=== PATIENT | female | born 1975 | race Caucasian/White ===

== ENCOUNTER 2017-10-30 10:44 | Emergency (ER) | payer BC ==
[2017-10-30 10:47] VITALS: BP 134/62; PULSE 80; RESP 16; TEMP 97.8; O2SAT 100
[2017-10-30] MEDS ORDERED: CIPR250T52 PO (11:11)
[2017-10-30] MEDS ORDERED: DULC100C PO (11:11)
[2017-10-30] MEDS ORDERED: NORE1CAP PO (11:11)
[2017-10-30] MEDS ORDERED: TRAM50TA PO (11:11)
--- NOTE | 2017-10-30 11:28 | PD ---
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 Her first complaint is of bilateral wrist pain worse on the right side, she is concerned that she might have developed an infection related to her hemorrhoidectomy in her wrists. The patient states that she has not had any fevers no history of HIV diabetes, no history of gonorrhea. Patient states the pain is been going on for the past 36-48 hours gradually worsening. No fevers no nausea vomiting. Patient has secondary complaint that she was on Cipro, she developed vaginal discharge over the past week which she thinks may also be related to wrist pain. She is also had continued urge to pee and thinks she might have a urinary tract infection. PFSH Past Medical History Narrative Medical Psoriatic arthritis Past Surgical History Narrative Surgical Hemorrhoidectomy, appendectomy, tonsillectomy, breast augmentation Social History Alcohol Use: Yes Tobacco Use: No Substance Use: No Allergies-Medications (Allergen,Severity, Reaction): Coded Allergies: sulfamethoxazole (Verified Allergy, Severe, Anaphylaxis, 10/30/17) trimethoprim (Verified Allergy, Severe, Anaphylaxis, 10/30/17) Reported Meds & Prescriptions Reported Meds & Active Scripts Active Prednisone 20 Mg Tab 40 Mg PO DAILY 5 Days Keflex (Cephalexin) 500 Mg Capsule 500 Mg PO Q6H 7 Days Flagyl (Metronidazole) 500 Mg Tab 500 Mg PO BID 7 Days Reported Tramadol (Tramadol HCl) 50 Mg Tab 50 Mg PO Q6H PRN Cipro (Ciprofloxacin HCl) Unknown Strength Tab Unknown Dose PO BID PT REPORTS HER LAST DOSE WAS THIS MORNING Dulcolax Stool Softener (Docusate Sodium) 100 Mg Cap 100 Mg PO BID Taytulla (Norethindrone-Ethinyl Estradiol-Fe) 1-20 mg-Mcg Cap 1 Tab PO DAILY Review of Systems Except as stated in HPI: all other systems reviewed are Neg Physical Exam Narrative GENERAL: Well-developed well-nourished no obvious distress SKIN: Focused skin assessment warm/dry. No rash no wound seen on the person HEAD: Atraumatic. Normocephalic. EYES: Pupils equal and round. No scleral icterus. No injection or drainage. ENT: No nasal bleeding or discharge. Mucous membranes pink and moist. NECK: Trachea midline. No JVD. CARDIOVASCULAR: Regular rate and rhythm. No murmur appreciated. RESPIRATORY: No accessory muscle use. Clear to auscultation. Breath sounds equal bilaterally. GASTROINTESTINAL: Abdomen soft, non-tender, nondistended. Hepatic and splenic margins not palpable. RECTAL: Exam performed with female nurse family centered specialist present all times, external exam only, sutures visible, scant dried blood at the anal verge but no active extravasation of blood. GENITOURINARY: Exam performed with female nurse family centered specialist present all times, scant white vaginal discharge, no cervical motion tenderness no bimanual tenderness and no lesions seen. MUSCULOSKELETAL: No obvious deformities. No clubbing. No cyanosis. No edema. Patient has some pain in the bilateral wrist joints right greater than left, there is no tenderness to palpation, she is able to range her joints but with some pain. The joints are not hot, no joint effusion appreciated. She pulse motor and sensory intact distally in all 4 extremity's, cap refill is brisk. NEUROLOGICAL: Awake and alert. No obvious cranial nerve deficits. Motor grossly within normal limits. Normal speech. PSYCHIATRIC: Appropriate mood and affect; insight and judgment normal. Data Data Last Documented VS Vital Signs Date Time Temp Pulse Resp B/P (MAP) Pulse Ox O2 Delivery O2 Flow Rate FiO2 10/30/17 13:45 80 19 132/71 (91) 97 10/30/17 10:47 97.8 Orders Orders Remove Urinary Catheter .ONCE (10/30/17 11:12) Urinalysis - C+S If Indicated (10/30/17 11:12) Wet Prep Profile (10/30/17 11:12) Gc And Chlamydia Pcr (10/30/17 11:12) Urine Culture (10/30/17 12:10) Ed Discharge Order (10/30/17 13:29) Labs Laboratory Tests Test 10/30/17 12:10 10/30/17 13:20 Urine Color LIGHT-YELLOW Urine Turbidity CLEAR Urine pH 7.0 Urine Specific Colon 1.001 Urine Protein NEG mg/dL Urine Glucose (UA) NEG mg/dL Urine Ketones NEG mg/dL Urine Occult Blood TRACE Urine Nitrite NEG Urine Bilirubin NEG Urine Urobilinogen LESS THAN 2.0 MG/DL Urine Leukocyte Esterase LARGE Urine RBC 2 /hpf Urine WBC 9 /hpf Urine Squamous Epithelial Cells 5 /hpf Urine Transitional Epithelial Cells <1 /hpf Urine Bacteria OCC /hpf Microscopic Urinalysis Comment CULTURE INDICATED Clue Cells (Wet Prep) PRESENT Vaginal Trichomonas (Wet Prep) NONE SEEN Vaginal Yeast (Wet Prep) NONE SEEN Chlamydia trachomatis DNA (PCR) NOT DETECTED Neisseria gonorrhoeae DNA (PCR) NOT DETECTED MDM Medical Decision Making Medical Screen Exam Complete: Yes Emergency Medical Condition: Yes Differential Diagnosis Postoperative pain, candidal vaginitis brought on by antibiotic therapy, bacterial vaginosis, urinary tract infection, urinary retention after surgery, psoriatic arthritis, infectious arthritis is highly unlikely per Narrative Course Patient roomed in the emergency department, I do not think that clinically the patient is at risk for infectious arthritis of her wrist. The wrist examination is reassuring. I do not even appreciate a joint effusion. I recommended against arthrocentesis at this time as I believe the risks outweigh the benefits. Diagnosis Primary Impression: Wrist pain, right Additional Impressions: Vaginal discharge UTI (urinary tract infection) Med/Other Pt SpecificInfo: Prescription(s) given Scripts Prednisone (Prednisone) 20 Mg Tab 40 MG PO DAILY for 5 Days, #10 TAB 0 Refills Prov: Sheldon Mccord MD 10/30/17 Cephalexin (Keflex) 500 Mg Capsule 500 MG PO Q6H for Infection for 7 Days, #28 CAP 0 Refills Prov: Sheldon Mccord MD 10/30/17 Metronidazole (Flagyl) 500 Mg Tab 500 MG PO BID for Infection for 7 Days, #14 TAB 0 Refills Prov: Sheldon Mccord MD 10/30/17 Disposition: 01 DISCHARGE HOME Condition: Stable Sheldon Mccord MD Oct 30, 2017 11:28
[2017-10-30 12:36] LABS: BACTERIA, URINE OCC /hpf; BILIRUBIN, URINE NEG (NEG); BLOOD, URINE TRACE (NEG); GLUCOSE,URINE NEG (NEG); KETONE, URINE NEG (NEG); NITRITE,URINE NEG (NEG); SQUAMOUS EPITHELIAL CELL URINE 5 /hpf (0-5); TRANSITIONAL EPI CELLS, URINE <1 /hpf; URINE COLOR LIGHT-YELLOW (YELLW/STRAW); URINE LEUKOCYTE ESTERASE LARGE (NEG)
[2017-10-30] MEDS ORDERED: PRED20 PO (13:25)
[2017-10-30] MEDS ORDERED: METR-1 PO (13:25)
[2017-10-30] MEDS ORDERED: CEPH-460 PO (13:25)
[2017-10-30 13:45] VITALS: BP 132/71
== END 2017-10-30 13:51 | disposition home or self-care (01) ==
LOC: NEPD 10:44
DX: M25.531 Pain in right wrist (principal); M25.532 Pain in left wrist; N89.8 Other specified noninflammatory disorders of vagina; N39.0 Urinary tract infection, site not specified
CPT/HCPCS: 51702; 81001; 87086; 87210; 87491; 87591